=== PATIENT | female | born 1985 | race Caucasian/White ===

== ENCOUNTER 2017-02-27 15:27 | Emergency (ER) | payer BC ==
[2017-02-27 15:32] VITALS: BP 127/71; PULSE 74; TEMP 98.4; BMI 25.4
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
[2017-02-27 16:33] LABS: URINE APPEARANCE CLEAR; URINE BILIRUBIN NEGATIVE (NEGATIVE); URINE BLOOD 2+ (NEGATIVE); URINE COLOR LTYELLOW; URINE GLUCOSE (UA) NEGATIVE (NEGATIVE); URINE KETONE NEGATIVE (NEGATIVE); URINE LEUK ESTERASE NEGATIVE (NEGATIVE); URINE NITRITE NEGATIVE (NEGATIVE); URINE PROTEIN NEGATIVE (NEGATIVE); URINE UROBILINOGEN NEGATIVE mg/dL (0.2-1.0)
[2017-02-27 16:37] LABS: BASOPHIL 0.3 % (0-2.0); EOSINOPHIL 0.8 % (0-4.5); MCH 30.8 pg (25.7-33.7); MCHC 32.8 g/dl (32.0-36.0); MEAN CELL VOLUME 93.9 fl (80-96); MEAN PLT VOLUME 8.2 fl (7.5-11.1); NEUTROPHILS 69.2 % (42.8-82.8); PLATELET COUNT 268 K/MM3 (134-434); RDW 14.4 % (11.6-15.6); WHITE BLOOD COUNT 7.8 K/mm3 (4.0-10.0)
[2017-02-27 16:57] LABS: INR 1.07 (0.82-1.09); PROTHROMBIN TIME (PATIENT) 11.8 SEC (9.98-11.88)
[2017-02-27 17:17] LABS: URINE RBC 3 /hpf (0-3); URINE WBC 1 /hpf (3-5)
== END 2017-02-27 18:40 | disposition home or self-care (01) ==
LOC: JERFT 15:27
DX: N92.0 Excessive and frequent menstruation with regular cycle (principal)
CPT/HCPCS: 36415; 76830-TC; 81003; 81015; 84702; 85025; 85610; 86850; 86900; 86901; 87086; 87491; 87591; 99281-25

== ENCOUNTER 2019-08-06 21:51 | Emergency (ER) | payer BC ==
[2019-08-06] MEDS ORDERED: ACETAMINOPHEN/CAFFEINE/BUTALBITAL 1 TAB PO ONE (22:05)
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
[2019-08-06] MEDS ORDERED: ACETAMINOPHEN/CAFFEINE/BUTALBITAL 1 TAB ONE (22:14)
[2019-08-06] MEDS ORDERED: METOCLOPRAMIDE HCL 10 MG TABLET (FP) PO ONE (22:51)
[2019-08-06 23:41] VITALS: BP 135/80; PULSE 86; TEMP 98
== END 2019-08-07 01:05 | disposition home or self-care (01) ==
LOC: JERFT 21:51
DX: G43.909 Migraine, unspecified, not intractable, without status migrainosus (principal)
CPT/HCPCS: 99281-25

== ENCOUNTER 2021-09-09 15:16 | Emergency (ER) | payer BC, OTHER ==
[2021-09-09 15:30] VITALS: BP 150/93; PULSE 83; TEMP 97.9; BMI 25.7
[2021-09-09] MEDS ORDERED: METHOCARBAMOL 500 MG TABLET PO ONE (16:50)
[2021-09-09] MEDS ORDERED: IBUPROFEN 600 MG TABLET (FP) PO ONE ×2 (16:50→17:14)
[2021-09-09] MEDS ORDERED: METHOCARBAMOL 500 MG TABLET ONE (17:15)
== END 2021-09-09 17:28 | disposition home or self-care (01) ==
LOC: JERFT 15:16
DX: M54.50 Low back pain, unspecified (principal); V89.2XXA Person injured in unspecified motor-vehicle accident, traffic, initial encounter
CPT/HCPCS: 99283-25

== ENCOUNTER 2022-04-08 08:46 | Emergency (ER) | payer OTHER ==
[2022-04-08 08:57] VITALS: RESP 18; BMI 25.4
[2022-04-08] MEDS ORDERED: METOCLOPRAMIDE HCL INJECTION 10 MG/2 ML VIAL IVPB ONE (09:18)
[2022-04-08] MEDS ORDERED: ACETAMINOPHEN 1000 MG/100 ML BAG IVPB ONE (09:18)
[2022-04-08] MEDS ORDERED: SODIUM CHLORIDE 0.9% 500 ML INFUS.BAG IV ONE (09:18)
[2022-04-08] MEDS ORDERED: METOCLOPRAMIDE HCL INJECTION 10 MG/2 ML VIAL ONE (10:32)
[2022-04-08] MEDS ORDERED: ACETAMINOPHEN INJECTION 100 ML IVPB ONE (10:32)
[2022-04-08 11:05] LABS: BASO % 0.3 % (0-2.0); EOS % 1.1 % (0-4.5); HEMATOCRIT 42.9 % (32.4-45.2); LYMPH % 33.7 % (8-40); MCH 29.3 pg (25.7-33.7); MCHC 32.6 g/dl (32.0-36.0); MEAN CELL VOLUME 89.9 fl (80-96); MEAN PLT VOLUME 7.9 fl (7.5-11.1); MONO % 5.8 % (3.8-10.2); NEUT % 59.1 % (42.8-82.8); PLATELET COUNT 222 10^3/uL (134-434); RBC 4.77 M/mm3 (3.60-5.2); RDW 12.9 % (11.6-15.6); WHITE BLOOD COUNT 5.2 K/mm3 (4.0-10.0)
[2022-04-08 11:09] LABS: EPI CELLS 28 /uL (0-25.1); HYALINE CASTS 1 /uL (0-3.1); URINE APPEARANCE CLEAR; URINE BACTERIA 700 /uL (0-1359); URINE BILIRUBIN NEGATIVE (NEGATIVE); URINE COLOR YELLOW; URINE GLUCOSE (UA) NEGATIVE (NEGATIVE); URINE KETONE NEGATIVE (NEGATIVE); URINE LEUK ESTERASE 1+ (NEGATIVE); URINE NITRITE NEGATIVE (NEGATIVE); URINE PROTEIN NEGATIVE (NEGATIVE); URINE RBC 49 /uL (0-23.9); URINE UROBILINOGEN 0.2 mg/dL (0.2-1.0); URINE WBC 26 /uL (0-25.8)
[2022-04-08 11:10] LABS: HCG,QUALITATIVE URINE Negative
[2022-04-08 11:30] LABS: ALBUMIN 4.1 g/dl (3.4-5.0); BLOOD UREA NITROGEN 15.7 mg/dL (7-18); CALCIUM 8.8 mg/dL (8.5-10.1)
[2022-04-08] MEDS ORDERED: MAGNESIUM SULF 50% (8.12 MEQ/2 ML-1 GM VIAL) IVPB ONE (11:31)
[2022-04-08] MEDS ORDERED: DEXAMETHASONE SOD PHOSPHATE 10 MG/1 ML VIAL IVPUSH ONE (11:31)
[2022-04-08] MEDS ORDERED: KETOROLAC TROMETHAMINE 30 MG/1 ML VIAL IVPUSH ONE (11:31)
[2022-04-08 11:33] LABS: CREATININE 0.8 mg/dL (0.55-1.3)
[2022-04-08 11:35] LABS: BILIRUBIN,TOTAL 0.8 mg/dL (0.2-1); TOT PROT 7.2 g/dl (6.4-8.2)
[2022-04-08 11:54] VITALS: BP 126/84; PULSE 69; TEMP 98.1
[2022-04-08] MEDS ORDERED: MAGNESIUM SULF 50% (8.12 MEQ/2 ML-1 GM VIAL) ONE (12:36)
[2022-04-08] MEDS ORDERED: SUMAtriptan SUCCINATE 50 MG TABLET ONE (12:36)
[2022-04-08] MEDS ORDERED: DEXAMETHASONE SOD PHOSPHATE 10 MG/1 ML VIAL ONE (12:36)
[2022-04-08] MEDS ORDERED: KETOROLAC TROMETHAMINE 30 MG/1 ML VIAL ONE (12:37)
[2022-04-08] MEDS ORDERED: SUMAtriptan SUCCINATE 50 MG TABLET PO ONE (12:45)
== END 2022-04-08 14:21 | disposition home or self-care (01) ==
LOC: JER 08:46
PROC: 3E0333Z Introduction of Anti-inflammatory into Peripheral Vein, Percutaneous Approach (ICD-10-PCS; principal; 2022-04-08)
PROC: 3E0333Z Introduction of Anti-inflammatory into Peripheral Vein, Percutaneous Approach (ICD-10-PCS; 2022-04-08)
PROC: 3E0333Z Introduction of Anti-inflammatory into Peripheral Vein, Percutaneous Approach (ICD-10-PCS; 2022-04-08)
PROC: 3E033GC Introduction of Other Therapeutic Substance into Peripheral Vein, Percutaneous Approach (ICD-10-PCS; 2022-04-08)
PROC: 3E033GC Introduction of Other Therapeutic Substance into Peripheral Vein, Percutaneous Approach (ICD-10-PCS; 2022-04-08)
DX: R51.9 Headache, unspecified (principal)
CPT/HCPCS: 36415; 70450-TC; 80053; 81003; 84703; 85025; 87086; 93005; 93010; 99285-25; J1100

== ENCOUNTER 2023-04-15 10:06 | Emergency (ER) | payer OTHER ==
[2023-04-15 10:14] VITALS: BP 155/102; PULSE 86; RESP 18; TEMP 97.7; BMI 25.7
[2023-04-15] MEDS ORDERED: DEXAMETHASONE SOD PHOSPHATE 10 MG/1 ML VIAL IVPUSH ONE (10:33)
[2023-04-15] MEDS ORDERED: SODIUM CHLORIDE 0.9% 1000 ML INFUS.BAG IV ONE (10:34)
[2023-04-15] MEDS ORDERED: methylPREDNISolone NA SUCC 125 MG/2 ML VIAL ONE (10:40)
[2023-04-15] MEDS ORDERED: methylPREDNISolone NA SUCC 125 MG/2 ML VIAL IVPUSH ONE (11:31)
== END 2023-04-15 12:38 | disposition home or self-care (01) ==
LOC: JER 10:06
PROC: 3E033GC Introduction of Other Therapeutic Substance into Peripheral Vein, Percutaneous Approach (ICD-10-PCS; principal; 2023-04-15)
PROC: 3E033GC Introduction of Other Therapeutic Substance into Peripheral Vein, Percutaneous Approach (ICD-10-PCS; 2023-04-15)
DX: R21 Rash and other nonspecific skin eruption (principal); L29.9 Pruritus, unspecified; T78.40XA Allergy, unspecified, initial encounter
CPT/HCPCS: 99284-25

== ENCOUNTER 2023-04-16 12:16 | Emergency (ER) | payer OTHER ==
[2023-04-16 12:22] VITALS: BP 151/86; PULSE 106; RESP 18; TEMP 98.2; BMI 26.6
[2023-04-16] MEDS ORDERED: LORATADINE 10 MG TABLET PO ONE (13:05)
[2023-04-16] MEDS ORDERED: DEXAMETHASONE SOD PHOSPHATE 10 MG/1 ML VIAL PO ONE (13:05)
[2023-04-16] MEDS ORDERED: FAMOTIDINE 20 MG TABLET PO ONE (13:05)
[2023-04-16] MEDS ORDERED: FAMOTIDINE 20 MG TABLET ONE (13:12)
[2023-04-16] MEDS ORDERED: DEXAMETHASONE SOD PHOSPHATE 10 MG/1 ML VIAL ONE (13:12)
[2023-04-16] MEDS ORDERED: LORATADINE 10 MG TABLET ONE (13:12)
== END 2023-04-16 13:30 | disposition home or self-care (01) ==
LOC: JERFT 12:16
PROC: 3E033GC Introduction of Other Therapeutic Substance into Peripheral Vein, Percutaneous Approach (ICD-10-PCS; principal; 2023-04-16)
DX: L29.9 Pruritus, unspecified (principal); R21 Rash and other nonspecific skin eruption; L50.0 Allergic urticaria
CPT/HCPCS: 99284-25; J1100

== ENCOUNTER 2023-04-17 18:00 | Emergency (ER) | payer OTHER ==
[2023-04-17 18:07] VITALS: TEMP 98; BMI 25.7
[2023-04-17] MEDS ORDERED: LACTATED RINGERS SOLUTION 1000 ML INFUS.BAG IV ONE (18:54)
[2023-04-17] MEDS ORDERED: FAMOTIDINE 20 MG/50 ML IVPB 20 MG/50 ML MG IVPB ONE ×2 (18:54→19:41)
[2023-04-17] MEDS ORDERED: methylPREDNISolone NA SUCC 125 MG/2 ML VIAL IVPUSH ONE (18:55)
[2023-04-17] MEDS ORDERED: methylPREDNISolone NA SUCC 125 MG/2 ML VIAL ONE (19:41)
[2023-04-17 20:04] LABS: BASO % 0.3 % (0-2.0); EOS % 0.5 % (0-4.5); HEMATOCRIT 34.8 % (32.4-45.2); HEMOGLOBIN 12.1 GM/dL (10.7-15.3); LYMPH % 21.5 % (8-40); MCH 30.4 pg (25.7-33.7); MCHC 34.7 g/dl (32.0-36.0); MEAN CELL VOLUME 87.5 fl (80-96); MEAN PLT VOLUME 7.9 fl (7.5-11.1); MONO % 3.4 % (3.8-10.2); NEUT % 74.3 % (42.8-82.8); PLATELET COUNT 228 10^3/uL (134-434); RBC 3.98 M/mm3 (3.60-5.2); RDW 13.3 % (11.6-15.6); WHITE BLOOD COUNT 10.7 K/mm3 (4.0-10.0)
[2023-04-17 20:12] LABS: POTASSIUM 3.4 mmol/L (3.5-5.1)
[2023-04-17 20:14] LABS: BLOOD UREA NITROGEN 13.9 mg/dL (7-18); CALCIUM 8.9 mg/dL (8.5-10.1); MAGNESIUM 2.3 mg/dL (1.8-2.4)
[2023-04-17 20:15] LABS: ALBUMIN 3.6 g/dl (3.4-5.0)
[2023-04-17 20:17] LABS: CREATININE 0.8 mg/dL (0.55-1.3)
[2023-04-17 20:19] LABS: BILIRUBIN,TOTAL 0.4 mg/dL (0.2-1); TOT PROT 6.4 g/dl (6.4-8.2)
[2023-04-17 20:36] LABS: URINE APPEARANCE CLEAR; URINE BILIRUBIN NEGATIVE (NEGATIVE); URINE COLOR YELLOW; URINE GLUCOSE (UA) NEGATIVE (NEGATIVE); URINE KETONE NEGATIVE (NEGATIVE); URINE LEUK ESTERASE NEGATIVE (NEGATIVE); URINE NITRITE NEGATIVE (NEGATIVE); URINE PROTEIN NEGATIVE (NEGATIVE); URINE UROBILINOGEN 0.2 mg/dL (0.2-1.0)
[2023-04-17 20:38] LABS: HCG,QUALITATIVE URINE Negative
[2023-04-17 21:59] VITALS: BP 146/94; PULSE 68; RESP 17
== END 2023-04-17 23:36 | disposition home or self-care (01) ==
LOC: JER 18:00
PROC: 3E033GC Introduction of Other Therapeutic Substance into Peripheral Vein, Percutaneous Approach (ICD-10-PCS; principal; 2023-04-17)
PROC: 3E033GC Introduction of Other Therapeutic Substance into Peripheral Vein, Percutaneous Approach (ICD-10-PCS; 2023-04-17)
PROC: 3E033GC Introduction of Other Therapeutic Substance into Peripheral Vein, Percutaneous Approach (ICD-10-PCS; 2023-04-17)
PROC: 3E033GC Introduction of Other Therapeutic Substance into Peripheral Vein, Percutaneous Approach (ICD-10-PCS; 2023-04-17)
DX: R21 Rash and other nonspecific skin eruption (principal); L29.9 Pruritus, unspecified; T78.40XD Allergy, unspecified, subsequent encounter; R11.0 Nausea; R10.84 Generalized abdominal pain; R60.0 Localized edema; R68.2 Dry mouth, unspecified
CPT/HCPCS: 36415; 80053; 81003; 82550; 83735; 84484; 84703; 85025; 93005; 93010; 99284-25

== ENCOUNTER 2024-12-16 04:37 | Emergency (ER) | payer BC, OTHER ==
[2024-12-16] MEDS ORDERED: FLUORESCEIN NA 1 EA STRIP ONE (04:48)
[2024-12-16] MEDS ORDERED: TETRACAINE 0.5% OPHTH SOLN 2 ML BOTTLE ONE (04:48)
[2024-12-16 04:58] VITALS: PULSE 97; RESP 20; TEMP 98.2; BMI 26.7
[2024-12-16] MEDS ORDERED: SULFAMETHOXAZOLE/TRIMETHOPRIM 800MG/160MG D.S. TABLET ONE (05:24)
[2024-12-16] MEDS ORDERED: diphenhydrAMINE HCL 25 MG CAPSULE (FP) PO ONE (05:24)
[2024-12-16] MEDS ORDERED: AMOX TR/POT CLAV 875MG/125MG TABLETS (FP) ONE (05:24)
[2024-12-16] MEDS: SULFAMETHOXAZOLE/TRIMETHOPRIM 800MG/160MG D.S. TABLET PO ONE (05:28)
[2024-12-16] MEDS: AMOX TR/POT CLAV 875MG/125MG TABLETS (FP) PO ONE (05:28)
[2024-12-16] MEDS: diphenhydrAMINE HCL 25 MG CAPSULE (FP) PO ONE (05:28)
[2024-12-16] MEDS ORDERED: ERYTHROMYCIN 0.5% OPHTHALMIC OINTMENT 3.5 GM TUBE ONE (05:36)
[2024-12-16 05:39] VITALS: BP 155/98
== END 2024-12-16 06:00 | disposition home or self-care (01) ==
LOC: JER 04:37
DX: L03.213 Periorbital cellulitis (principal)
CPT/HCPCS: 99283-25